=== PATIENT | female | born 1965 | race African-American/Black ===

== ENCOUNTER 2019-08-04 14:52 | Emergency (ER) | payer OTHER, SELFPAY ==
[2019-08-05 16:50] LABS: SARS-CoV-2 MS2 Positive; SARS-CoV-2 N Gene Negative; SARS-CoV-2 S Gene Negative; SARS-CoV-2 orf1ab Negative
== END 2019-08-04 15:20 | disposition home or self-care (01) ==
LOC: ERS 14:52
DX: R05 Cough (principal); Z20.828 Contact with and (suspected) exposure to other viral communicable diseases; F17.210 Nicotine dependence, cigarettes, uncomplicated
CPT/HCPCS: 87635; 99283; U0003

== ENCOUNTER 2021-10-19 10:13 | Emergency (ER) | payer SELFPAY ==
[2021-10-19] MEDS ORDERED: Acetaminophen 500 MG TAB ONE (12:29)
== END 2021-10-19 12:35 | disposition home or self-care (01) ==
LOC: ERS 10:13
DX: B34.9 Viral infection, unspecified (principal); H65.92 Unspecified nonsuppurative otitis media, left ear; F17.200 Nicotine dependence, unspecified, uncomplicated
CPT/HCPCS: 71045

== ENCOUNTER 2023-01-24 11:51 | Emergency (ER) | payer BC, SELFPAY ==
[2023-01-24] MEDS ORDERED: Ketorolac Tromethamine 30 MG/ML VIAL ONE (12:23)
== END 2023-01-24 13:19 | disposition home or self-care (01) ==
LOC: ERS 11:51
DX: M17.11 Unilateral primary osteoarthritis, right knee (principal); F17.210 Nicotine dependence, cigarettes, uncomplicated
CPT/HCPCS: 96372; J1885

== ENCOUNTER → 2024-01-20 | Emergency (ER) | payer BC, OTHER, SELFPAY ==
[~2024-01-20] MED LIST: Albuterol 2.5 MG (3 mL) NEB ONE; Aspirin Chewable 81 MG TAB ONE; Ipratropium Bromide 2.5 ml Neb ONE; Nitroglycerin 0.4 MG TAB 1 EACH ONE
[2024-01-20 08:58] LABS: #Basophils Less than 0.03 10x3/uL (0.0-0.2); %Basophils 0.3 % (0.0-1.0); %Eosinophils 0.6 % (0.0-10.0); %Lymphocytes 28.4 % (21.0-51.0); %Monocytes 9.3 % (0.0-10.0); %Neutrophils 61.1 % (42.0-75.0); Hemoglobin 14.3 g/dL (12.0-16.0); Mean Corpuscular HGB CONC 31.1 g/dL (32.0-36.0); Mean Corpuscular Hemoglobin 27.8 pg (27.0-31.0); Mean Corpuscular Volume 89.3 fL (78.0-98.0); Mean Platelet Volume 8.9 fL (7.4-10.4); Platelet Count 211 10x3/uL (130-400); Red Blood Cell (RBC) Count 5.15 mill/uL (4.20-5.40)
[2024-01-20 09:26] LABS: ALT (SGPT) 14 U/L (8-55); AST (SGOT) 18 U/L (5-34); Albumin 3.4 g/dL (3.5-5.0); Alkaline Phosphatase 80 U/L (40-110); Anion Gap 10 mmol/L (10-20); BUN (Urea Nitrogen) 9 mg/dL (9.8-20.1); Bilirubin, Total 0.4 mg/dL (0.2-1.2); Calc. Creatinine Clearance 0 mL/min (70-130); Carbon Dioxide 32 mmol/L (22-29); Chloride 104 mmol/L (98-107); Estimated GFR 101; Globulin 3.4 g/dL (2.4-3.5); Glucose 98 mg/dL (70-105); Lipase 25 U/L (8-78); Potassium 4.2 mmol/L (3.5-5.1); Protein, Total 6.8 g/dL (6.0-8.3); Sodium 142 mmol/L (136-145); Troponin I Less than 0.010 ng/mL (< 0.028)
== END ==
LOC: ERS 08:42
DX: R06.02 Shortness of breath (principal); R07.81 Pleurodynia; J44.9 Chronic obstructive pulmonary disease, unspecified; F17.210 Nicotine dependence, cigarettes, uncomplicated
CPT/HCPCS: 71045; 80053; 83690; 84484; 85025; 85379; 93005; J7611; J7644